=== PATIENT | female | born 1970 | race Caucasian/White ===

== ENCOUNTER 2016-11-20 23:38 | Emergency (ER) | payer OTHER ==
--- NOTE | 2016-11-21 00:02 | EDM.PDOC ---
ED HISTORY OF PRESENT ILLNESS - General Chief Complaint: Respiratory Problem Stated Complaint: BLOODY COUGH Time Seen by Provider: 11/20/16 23:55 - History of Present Illness INITIAL COMMENTS - FREE TEXT/NARRATIVE: 46-year-old female presents emergency room with a bloody cough. This started an hour half prior to arrival the patient developed a sudden cough and she noted she was coughing up pink tinged sputum that was otherwise clear. Patient denies any fevers or chills. Patient is a significant history of having a plane flight today and the spending some time in the car. The patient does not have a history of blood clots. Her past medical history is for the most part unremarkable. This evening the patient had intercourse with her and shortly after this the cough started. - Related Data Allergies/ADRs: Allergies Allergy/AdvReac Type Severity Reaction Status Date / Time cephalexin [From Keflex] Allergy Hives Verified 11/20/16 23:55 erythromycin base Allergy Hives Verified 11/20/16 23:55 Penicillins Allergy Hives Verified 11/20/16 23:55 Sulfa (Sulfonamide Allergy Hives Verified 11/20/16 23:55 Antibiotics) Home Meds: Home Meds Multivitamin [Multi-Vitamin Daily] 1 tab PO DAILY 11/20/16 [History] ED ROS GENERAL - Review of Systems Review Of Systems: See Below Constitutional: Reports: no symptoms HEENT: Reports: No symptoms Respiratory: Reports: Cough, Sputum, Hemoptysis, Other (She has a tickle in her chest denies shortness of breath) Cardiovascular: Reports: No symptoms GI/Abdominal: Reports: No symptoms : Reports: no symptoms Neurological: Reports: No Symptoms ED EXAM, GENERAL - Physical Exam Exam: See Below Exam Limited By: No limitations General Appearance: alert, no apparent distress Head: atraumatic, normocephalic Neck: normal inspection, supple, non-tender, full range of motion. No: lymphadenopathy (L), lymphadenopathy (R) Respiratory/Chest: no respiratory distress, crackles (Right base and middle lobe area). No: rhonchi, wheezing Cardiovascular: regular rate, rhythm, no murmur, tachycardia GI/Abdominal: normal bowel sounds, soft, non tender Back Exam: normal inspection. No: CVA tenderness (L), CVA tenderness (R) Extremities: normal inspection, no pedal edema Neurological: alert, oriented, normal cognition EKG INTERPRETATION EKG Date: 11/21/16 Rhythm: other (Sinus tachycardia) Rate (beats/min): 142 [place]: LAD-left axis deviation P-wave: present QRS: normal ST-T: other (On specific nondiagnostic ST-T wave changes) QT: prolonged (Tachycardia related) EKG Interpretation Comments: Sinus tachycardia inferior Q waves of undetermined significance Course - Vital Signs Last Recorded V/S: Last Vital Signs Temp 36.1 C 11/20/16 23:48 Pulse 141 H 11/21/16 01:57 Resp 20 11/20/16 23:48 BP 179/135 H 11/21/16 01:57 Pulse Ox 96 11/21/16 00:07 - Orders/Labs/Meds Orders: Active Orders 24 hr Category Date Time Status EKG 12 Lead [EKG Documentation Completion] [RC] STAT Care 11/20/16 23:56 Active Ang Chest [CT] Stat Exams 11/21/16 00:02 Taken Chest 1V Frontal [CR] Stat Exams 11/21/16 01:05 Taken CULTURE BLOOD [BC] Stat Lab 11/21/16 02:05 Received CULTURE BLOOD [BC] Stat Lab 11/21/16 02:13 Received CULTURE URINE [RM] Stat Lab 11/21/16 03:39 Uncollected URINALYSIS W/MICROSCOPIC [UA W/MICROSCOPIC] [URIN] Stat Lab 11/21/16 03:37 Uncollected Potassium Chloride [KCl 10 MEQ in Water 100 ML] 10 meq Med 11/21/16 01:15 Active Premix Bag 1 bag IV Q1H Sodium Chloride 0.9% [Normal Saline] 1,000 ml Med 11/21/16 00:15 Active IV ASDIRECTED Sodium Chloride 0.9% [Normal Saline] 1,000 ml Med 11/21/16 01:00 Active IV ASDIRECTED Blood Culture x2 Reflex Set [OM.PC] Stat Oth 11/21/16 01:44 Ordered Medication Orders Sodium Chloride (Normal Saline) 1,000 mls @ 125 mls/hr IV ASDIRECTED PATITO Last Admin: 11/21/16 00:07 Dose: 125 mls/hr Sodium Chloride (Normal Saline) 1,000 mls @ 100 mls/hr IV ASDIRECTED PATITO Last Admin: 11/21/16 00:59 Dose: 100 mls/hr Potassium Chloride 10 meq/ (Premix) 100 mls @ 100 mls/hr IV Q1H PATITO Stop: 11/21/16 05:14 Last Admin: 11/21/16 02:50 Dose: 100 mls/hr Infusion: 11/21/16 02:32 Dose: 100 mls/hr Admin: 11/21/16 01:32 Dose: 100 mls/hr Labs: Laboratory Tests 11/21/16 11/21/16 11/21/16 Range/Units 00:05 00:05 00:05 WBC 12.07 H (3.98-10.04) K/mm3 RBC 6.08 H (3.98-5.22) M/mm3 Hgb 17.2 H (11.2-15.7) gm/L Hct 48.9 H (34.1-44.9) % MCV 80.4 (79.4-94.8) fl MCH 28.3 (25.6-32.2) pg MCHC 35.2 (32.2-35.5) g/dl RDW Std Deviation 37.0 (36.4-46.3) fL Plt Count 259 (182-369) K/mm3 MPV 10.7 (9.4-12.3) fl Neutrophils % (Manual) 65 H (40-60) % Band Neutrophils % 0 (0-10) % Lymphocytes % (Manual) 28 (20-40) % Atypical Lymphs % 0 % Monocytes % (Manual) 5 (2-10) % Eosinophils % (Manual) 1 (0.7-5.8) % Basophils % (Manual) 1 (0.1-1.2) Platelet Estimate Adequate Plt Morphology Comment Normal Polychromasia 1+ slight RBC Morph Comment Not Reportable PT 10.1 (8.0-13.0) SECONDS INR 0.93 APTT 25 (22-36) SECONDS D-Dimer, Quantitative (0.19-0.59) mg/L Sodium 137 (136-145) mEq/L Potassium 3.6 (3.5-5.1) mEq/L Chloride 99 (98-107) mEq/L Carbon Dioxide 22 (21-32) mEq/L Anion Gap 19.6 H (5-15) BUN 14 (7-18) mg/dL Creatinine 1.0 (0.55-1.02) mg/dL Est Cr Clr Drug Dosing 67.21 mL/min Estimated GFR (MDRD) > 60 (>60) mL/min BUN/Creatinine Ratio 14.0 (14-18) Glucose 363 H (74-106) mg/dL Lactic Acid (0.4-2.0) mmol/L Calcium 9.8 (8.5-10.1) mg/dL Total Bilirubin 0.8 (0.2-1.0) mg/dL AST 15 (15-37) U/L ALT 22 (14-59) U/L Alkaline Phosphatase 70 (46-116) U/L Troponin I (0.00-0.056) ng/mL B-Natriuretic Peptide (0-100) pg/mL Total Protein 9.1 H (6.4-8.2) g/dl Albumin 3.5 (3.4-5.0) g/dl Globulin 5.6 gm/dL Albumin/Globulin Ratio 0.6 L (1-2) HCG, Qual (NEGATIVE) Mycoplasma pneumon IgM (NEGATIVE) 11/21/16 11/21/16 11/21/16 Range/Units 00:05 00:05 00:05 WBC (3.98-10.04) K/mm3 RBC (3.98-5.22) M/mm3 Hgb (11.2-15.7) gm/L Hct (34.1-44.9) % MCV (79.4-94.8) fl MCH (25.6-32.2) pg MCHC (32.2-35.5) g/dl RDW Std Deviation (36.4-46.3) fL Plt Count (182-369) K/mm3 MPV (9.4-12.3) fl Neutrophils % (Manual) (40-60) % Band Neutrophils % (0-10) % Lymphocytes % (Manual) (20-40) % Atypical Lymphs % % Monocytes % (Manual) (2-10) % Eosinophils % (Manual) (0.7-5.8) % Basophils % (Manual) (0.1-1.2) Platelet Estimate Plt Morphology Comment Polychromasia RBC Morph Comment PT (8.0-13.0) SECONDS INR APTT (22-36) SECONDS D-Dimer, Quantitative 0.38 (0.19-0.59) mg/L Sodium (136-145) mEq/L Potassium (3.5-5.1) mEq/L Chloride (98-107) mEq/L Carbon Dioxide (21-32) mEq/L Anion Gap (5-15) BUN (7-18) mg/dL Creatinine (0.55-1.02) mg/dL Est Cr Clr Drug Dosing mL/min Estimated GFR (MDRD) (>60) mL/min BUN/Creatinine Ratio (14-18) Glucose (74-106) mg/dL Lactic Acid (0.4-2.0) mmol/L Calcium (8.5-10.1) mg/dL Total Bilirubin (0.2-1.0) mg/dL AST (15-37) U/L ALT (14-59) U/L Alkaline Phosphatase (46-116) U/L Troponin I < 0.017 (0.00-0.056) ng/mL B-Natriuretic Peptide (0-100) pg/mL Total Protein (6.4-8.2) g/dl Albumin (3.4-5.0) g/dl Globulin gm/dL Albumin/Globulin Ratio (1-2) HCG, Qual Negative (NEGATIVE) Mycoplasma pneumon IgM (NEGATIVE) 11/21/16 11/21/16 11/21/16 Range/Units 00:05 00:05 02:30 WBC (3.98-10.04) K/mm3 RBC (3.98-5.22) M/mm3 Hgb (11.2-15.7) gm/L Hct (34.1-44.9) % MCV (79.4-94.8) fl MCH (25.6-32.2) pg MCHC (32.2-35.5) g/dl RDW Std Deviation (36.4-46.3) fL Plt Count (182-369) K/mm3 MPV (9.4-12.3) fl Neutrophils % (Manual) (40-60) % Band Neutrophils % (0-10) % Lymphocytes % (Manual) (20-40) % Atypical Lymphs % % Monocytes % (Manual) (2-10) % Eosinophils % (Manual) (0.7-5.8) % Basophils % (Manual) (0.1-1.2) Platelet Estimate Plt Morphology Comment Polychromasia RBC Morph Comment PT (8.0-13.0) SECONDS INR APTT (22-36) SECONDS D-Dimer, Quantitative (0.19-0.59) mg/L Sodium (136-145) mEq/L Potassium (3.5-5.1) mEq/L Chloride (98-107) mEq/L Carbon Dioxide (21-32) mEq/L Anion Gap (5-15) BUN (7-18) mg/dL Creatinine (0.55-1.02) mg/dL Est Cr Clr Drug Dosing mL/min Estimated GFR (MDRD) (>60) mL/min BUN/Creatinine Ratio (14-18) Glucose (74-106) mg/dL Lactic Acid 2.6 H (0.4-2.0) mmol/L Calcium (8.5-10.1) mg/dL Total Bilirubin (0.2-1.0) mg/dL AST (15-37) U/L ALT (14-59) U/L Alkaline Phosphatase (46-116) U/L Troponin I (0.00-0.056) ng/mL B-Natriuretic Peptide 26 (0-100) pg/mL Total Protein (6.4-8.2) g/dl Albumin (3.4-5.0) g/dl Globulin gm/dL Albumin/Globulin Ratio (1-2) HCG, Qual (NEGATIVE) Mycoplasma pneumon IgM Negative (NEGATIVE) 11/21/16 Range/Units 02:50 WBC (3.98-10.04) K/mm3 RBC (3.98-5.22) M/mm3 Hgb (11.2-15.7) gm/L Hct (34.1-44.9) % MCV (79.4-94.8) fl MCH (25.6-32.2) pg MCHC (32.2-35.5) g/dl RDW Std Deviation (36.4-46.3) fL Plt Count (182-369) K/mm3 MPV (9.4-12.3) fl Neutrophils % (Manual) (40-60) % Band Neutrophils % (0-10) % Lymphocytes % (Manual) (20-40) % Atypical Lymphs % % Monocytes % (Manual) (2-10) % Eosinophils % (Manual) (0.7-5.8) % Basophils % (Manual) (0.1-1.2) Platelet Estimate Plt Morphology Comment Polychromasia RBC Morph Comment PT (8.0-13.0) SECONDS INR APTT (22-36) SECONDS D-Dimer, Quantitative (0.19-0.59) mg/L Sodium (136-145) mEq/L Potassium (3.5-5.1) mEq/L Chloride (98-107) mEq/L Carbon Dioxide (21-32) mEq/L Anion Gap (5-15) BUN (7-18) mg/dL Creatinine (0.55-1.02) mg/dL Est Cr Clr Drug Dosing mL/min Estimated GFR (MDRD) (>60) mL/min BUN/Creatinine Ratio (14-18) Glucose (74-106) mg/dL Lactic Acid (0.4-2.0) mmol/L Calcium (8.5-10.1) mg/dL Total Bilirubin (0.2-1.0) mg/dL AST (15-37) U/L ALT (14-59) U/L Alkaline Phosphatase (46-116) U/L Troponin I 0.048 (0.00-0.056) ng/mL B-Natriuretic Peptide (0-100) pg/mL Total Protein (6.4-8.2) g/dl Albumin (3.4-5.0) g/dl Globulin gm/dL Albumin/Globulin Ratio (1-2) HCG, Qual (NEGATIVE) Mycoplasma pneumon IgM (NEGATIVE) Meds: Medications Generic Name Dose Route Start Last Admin Trade Name Freq PRN Reason Stop Dose Admin Sodium Chloride 1,000 mls @ 125 mls/hr 11/21/16 00:15 11/21/16 00:07 Normal Saline IV 125 mls/hr ASDIRECTED PATITO Administration Sodium Chloride 1,000 mls @ 100 mls/hr 11/21/16 01:00 11/21/16 00:59 Normal Saline IV 100 mls/hr ASDIRECTED PATITO Administration Potassium Chloride 10 meq/ 100 mls @ 100 mls/hr 11/21/16 01:15 11/21/16 02:50 Premix IV 11/21/16 05:14 100 mls/hr Q1H PATITO Administration Discontinued Medications Generic Name Dose Route Start Last Admin Trade Name Freq PRN Reason Stop Dose Admin Furosemide 20 mg 11/21/16 01:14 11/21/16 01:30 Lasix IVPUSH 11/21/16 01:15 20 mg ONETIME ONE Administration Sodium Chloride Confirm 11/21/16 00:05 11/21/16 01:01 Normal Saline Administered 11/21/16 00:06 Not Given Dose 1,000 mls @ as directed .ROUTE .STK-MED ONE Iopamidol 100 ml 11/21/16 00:29 11/21/16 01:15 Isovue-370 (76%) IVPUSH 11/21/16 00:30 100 ml ONETIME ONE Administration Labetalol HCl 5 mg 11/21/16 01:44 11/21/16 01:57 Normodyne IVPUSH 11/21/16 01:45 5 mg ONETIME ONE Administration - Re-Assessments/Exams Free Text/Narrative Re-Assessment/Exam: 11/21/16 02:[address] was ordered initially thinking the patient had pulmonary and was recent travel history sudden onset tachycardia and hemoptysis. Albeit her well score was 2 be pursued this option the CTA shows extensive bilateral multifocal groundglass nodules and larger nodular areas of alveolar opacities in both lung bases findings could be infectious neoplastic or other etiologies no PE identified chest x-ray is nondiagnostic and cardiomegaly EKG shows sinus tachycardia rate 142 QTC is prolonged at 592 most likely related to the tachycardia. Laboratory evaluation shows a white count of 12,065% segs no bands 28% lymph platelet count is 259,000 coags are normal d-dimer 0.38 anion gap supple little bit at 19.6 BUN 14 creatinine one glucose is quite elevated 363 total bilirubin 0.8 EST 18 ALT 22 alkaline phosphatase 70 troponin is less than 0.017 hCG negative. Patient has had 20 mg of Lasix 5 mg of labetalol her pressure has come down to the 170s her pulse in the 120s. Patient's case discussed with Dr. Martin [facility] physician who is willing to accept the patient. 11/21/16 03:39 Patient left emergency Department in stable condition subjectively she is doing better she did respond to the labetalol and Lasix her pulse is in the one teens to 120s systolics to 150s to 160s. Case again discussed with Dr. Blackwell of potential concern is a troponin that came up the stoma normal range is likely due to accelerated hypertension pulse but it did go up to 0.046. Lactic acid 2.7 Departure - Departure Time of Disposition: 02:38 Disposition: DC/Tfer to Acute Hospital 02 Clinical Impression: Hypertensive urgency, Hemoptysis, Hyperglycemia, Hypoxia Referrals: Lorraine Espana MD [Primary Care Provider] - Forms: ED Department Discharge - My Orders Last 24 Hours: My Active Orders 11/20/16 23:56 EKG 12 Lead [EKG Documentation Completion] [RC] STAT 11/21/16 00:02 Ang Chest [CT] Stat 11/21/16 00:15 Sodium Chloride 0.9% [Normal Saline] 1,000 ml IV ASDIRECTED 11/21/16 01:00 Sodium Chloride 0.9% [Normal Saline] 1,000 ml IV ASDIRECTED 11/21/16 01:05 Chest 1V Frontal [CR] Stat 11/21/16 01:15 Potassium Chloride [KCl 10 MEQ in Water 100 ML] 10 meq Premix Bag 1 bag IV Q1H 11/21/16 01:44 Blood Culture x2 Reflex Set [OM.PC] Stat 11/21/16 02:05 CULTURE BLOOD [BC] Stat 11/21/16 02:13 CULTURE BLOOD [BC] Stat 11/21/16 03:37 URINALYSIS W/MICROSCOPIC [UA W/MICROSCOPIC] [URIN] Stat 11/21/16 03:39 CULTURE URINE [RM] Stat - Assessment/Plan Last 24 Hours: My Active Orders 11/20/16 23:56 EKG 12 Lead [EKG Documentation Completion] [RC] STAT 11/21/16 00:02 Ang Chest [CT] Stat 11/21/16 00:15 Sodium Chloride 0.9% [Normal Saline] 1,000 ml IV ASDIRECTED 11/21/16 01:00 Sodium Chloride 0.9% [Normal Saline] 1,000 ml IV ASDIRECTED 11/21/16 01:05 Chest 1V Frontal [CR] Stat 11/21/16 01:15 Potassium Chloride [KCl 10 MEQ in Water 100 ML] 10 meq Premix Bag 1 bag IV Q1H 11/21/16 01:44 Blood Culture x2 Reflex Set [OM.PC] Stat 11/21/16 02:05 CULTURE BLOOD [BC] Stat 11/21/16 02:13 CULTURE BLOOD [BC] Stat 11/21/16 03:37 URINALYSIS W/MICROSCOPIC [UA W/MICROSCOPIC] [URIN] Stat 11/21/16 03:39 CULTURE URINE [RM] Stat
[2016-11-21] MEDS ORDERED: Sodium Chloride 0.9% 1,000 ML ONE (00:05)
[2016-11-21] MEDS ORDERED: Sodium Chloride 0.9% 1,000 ML IV SCH ×2 (00:15→01:00)
[2016-11-21] MEDS ORDERED: Iopamidol 755 Mg/ML 100 ML Bottle IVPUSH ONE (00:29)
[2016-11-21] MEDS ORDERED: Furosemide 20 MG/2 ML VIAL IVPUSH ONE (01:14)
[2016-11-21] MEDS: Potassium Chloride 10 MEQ in Premix Bag 1 BAG IV SCH ×2 (01:32→02:50)
[2016-11-21] MEDS ORDERED: Labetalol 100 MG/20 ML MDV IVPUSH ONE (01:44)
[2016-11-21 01:59] VITALS: BP 179/135
--- NOTE | 2016-11-21 08:11 | CT ---
CT chest Technique: Multiple axial sections were obtained from above the lung apices inferiorly through the lung bases. Intravenous contrast was utilized. Study has been performed as a pulmonary angiogram protocol. Findings: Pulmonary arteries are moderately well-opacified. No filling defects are seen to indicate pulmonary embolism. Mediastinum and hilar regions show no adenopathy or mass. Small scattered normal lymph nodes are seen. Mild coronary artery calcification is noted. Small calcification seen within a collapsed gallbladder suggesting gallstones. Increased density seen within both sides of the chest most of which appears to be a combination of ground-glass and nodular densities. Impression: 1. Extensive ground-glass appearance throughout the chest with nodular areas of opacity primarily within both lower lungs with lesser nodularity seen within the upper chest. Differential includes infection which includes atypical infection, neoplasm can also cause this finding and other nonlisted etiologies. 2. No findings of pulmonary embolism. Diagnostic code #5 Agree with preliminary report issued by [employer] (preliminary report dictated on 11/21/16, 2:17 AM Central Time)
--- NOTE | 2016-11-21 08:11 | CR ---
Chest: Portable view of the chest was obtained. Comparison: Previous chest CT performed earlier on the same day. Heart size and mediastinum are normal. Nodularity and ground-glass appearance appears very much less appreciated on current chest x-ray than seen on CT study. Lungs are basically clear. Mild scoliosis is noted within the spine. Impression: 1. Previous CT findings are very poorly seen on plain film study. Diagnostic code #3
== END 2016-11-21 03:33 ==
LOC: JD.ED 23:38
DX: I16.0 Hypertensive urgency (principal); R91.8 Other nonspecific abnormal finding of lung field; R04.2 Hemoptysis; R73.9 Hyperglycemia, unspecified; R09.02 Hypoxemia; Z88.0 Allergy status to penicillin; Z88.1 Allergy status to other antibiotic agents; Z88.2 Allergy status to sulfonamides
CPT/HCPCS: 36415; 71010; 71275; 80053; 81001; 83605; 83880; 84484; 84703; 85025; 85379; 85610; 85730; 86738; 87040; 87086; 87804; 93005; 96361; 96365; 96366; 96375; 99285; A9270; J3480; J7040; Q9967; 99284